=== PATIENT | male | born 1990 | race Hispanic/Latino ===

== ENCOUNTER 2016-08-08 06:32 | Emergency (ER) | payer OTHER ==
[2016-08-08 06:46] VITALS: BP 127/80; PULSE 79; RESP 18; TEMP 98; O2SAT 100
[2016-08-08] MEDS ORDERED: Ophthalmic Irrigation, Soln ONE (07:13)
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
[2016-08-10 10:17] LABS: HB CORE AB (IGM) Non Reactive (Non Reactive); HB S AG Non Reactive (Non Reactive)
[2016-08-10 13:40] LABS: HB E AB Nonreactive (Nonreactive); HB E AG Nonreactive (Nonreactive)
== END 2016-08-08 08:18 | disposition home or self-care (01) ==
LOC: H.ER 06:32
DX: Z77.21 Contact with and (suspected) exposure to potentially hazardous body fluids (principal)

== ENCOUNTER 2017-11-13 22:37 | Emergency (ER) | payer OTHER ==
[2017-11-13 22:43] VITALS: RESP 18
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
[2017-11-13 23:36] VITALS: BP 130/78; PULSE 78; TEMP 98; O2SAT 100
== END 2017-11-13 23:30 | disposition home or self-care (01) ==
LOC: H.ER 22:37
DX: Z77.21 Contact with and (suspected) exposure to potentially hazardous body fluids (principal); Y99.0 Civilian activity done for income or pay